=== PATIENT | male | born 2000 | race Hispanic/Latino ===

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

== ENCOUNTER 2020-07-24 09:22 | Emergency (ER) | payer OTHER | END 2020-07-24 10:41 | disposition home or self-care (01) | LOC: NAV ERS 09:22 | DX: S93.402A Sprain of unspecified ligament of left ankle, initial encounter (principal); X58.XXXA Exposure to other specified factors, initial encounter; Y93.67 Activity, basketball | CPT/HCPCS: 29515 ==

== ENCOUNTER 2020-12-29 11:01 | Emergency (ER) | payer OTHER ==
[2020-12-29] MEDS ORDERED: Ibuprofen 800 MG TAB ONE (11:24)
[2020-12-30 01:13] LABS: SARS-CoV-2 PCR by NAA Not Detected (NotDetected)
== END 2020-12-29 11:36 | disposition home or self-care (01) ==
LOC: NAV ERS 11:01
DX: R50.9 Fever, unspecified (principal); R05 Cough; R51.9 Headache, unspecified; Z20.822 Contact with and (suspected) exposure to COVID-19
CPT/HCPCS: 99283; U0003; U0005

== ENCOUNTER 2021-04-05 11:37 | Emergency (ER) | payer BC, OTHER | END 2021-04-05 12:08 | disposition home or self-care (01) | LOC: NAV ERS 11:37 | DX: J06.9 Acute upper respiratory infection, unspecified (principal) | CPT/HCPCS: 99283 ==

== ENCOUNTER 2021-11-06 12:45 | Emergency (ER) | payer OTHER, BC ==
[2021-11-06] MEDS ORDERED: Boostrix 0.5 ML (Tdap) VIAL ONE (13:11)
== END 2021-11-06 13:35 | disposition home or self-care (01) ==
LOC: NAV ERS 12:45
DX: S80.11XA Contusion of right lower leg, initial encounter (principal); S50.812A Abrasion of left forearm, initial encounter; W50.3XXA Accidental bite by another person, initial encounter; Z23 Encounter for immunization
CPT/HCPCS: 90471; 90715